=== PATIENT | female | born 1975 | race Caucasian/White ===

== ENCOUNTER 2017-03-25 04:48 | Emergency (ER) | END 2017-03-25 09:31 | disposition home or self-care (01) ==

== ENCOUNTER 2018-04-13 20:17 | Emergency (ER) | payer MEDICAID ==
[~2018-04-13] VITALS: Ht 172.7 cm; Wt 74.0 kg
[2018-04-13 20:32] VITALS: Ht 172.7 cm; Wt 74.0 kg
[2018-04-13] MEDS ORDERED: LORAZEPAM 1 MG TAB PO ONE (21:00)
[2018-04-13] MEDS ORDERED: LORA1TAB PO (22:17)
--- NOTE | 2018-04-13 22:23 | ERD ---
ER Documentation Chief Complaint Chief Complaint FLULIKE WITH MILD DIZZINESS X FEW DAYS HPI 42-year-old female is here complaining of 3 days of left-sided arm pain as well as intermittent palpitations. No chest pain at this time but states she is been having intermittent chest pain. She has had symptoms like this before and was t old it was anxiety. She has no cardiac past medical history. No fever or recent illness. No alcohol smoking or drugs. ROS All systems reviewed and are negative except as per history of present illness. Medications Home Meds Active Scripts Lorazepam* (Lorazepam*) 1 Mg Tablet, 1 MG PO Q8, #10 TAB Prov:GORDO OTTO PA-C 04/13/18 Allergies Allergies: Coded Allergies: No Known Allergy (Unverified , 11/16/13) PMhx/Soc History of Surgery: No Anesthesia Reaction: No Hx Neurological Disorder: No Hx Respiratory Disorders: No Hx Cardiac Disorders: No Hx Psychiatric Problems: No Hx Miscellaneous Medical Probl: No Hx Alcohol Use: No Hx Substance Use: No Hx Tobacco Use: No Smoking Status: Never smoker FmHx Family History: No diabetes Physical Exam Vitals Vital Signs Date Temp Pulse Resp B/P (MAP) Pulse Ox O2 O2 Flow FiO2 Time Delivery Rate 04/13/18 99.8 71 18 122/57 99 20:32 (78) Physical Exam INITIAL VITAL SIGNS: Reviewed by me GENERAL: Awake, alert and oriented x 4, well appearing, nontoxic, speaking in full sentences. No acute distress HEAD: Atraumatic NECK: Supple. No masses. Full range of motion. No meningismus. No midline tenderness. EYES: EOMI. PERRL. RESPIRATORY: Clear to auscultation bilaterally. Symmetric chest wall rise. No wheezing or rales. No accessory muscle use. CV: Regular rate and rhythm. No murmurs, rubs, or gallops. Result Diagram: 04/13/18211004/13/182110 Results 24 hrs Laboratory Tests Test 04/13/18 21:11 04/13/18 21:19 White Blood Count 8.1 10^3/ul Red Blood Count 4.47 10^6/ul Hemoglobin 10.8 g/dl Hematocrit 33.7 % Mean Corpuscular Volume 75.4 fl Mean Corpuscular Hemoglobin 24.2 pg Mean Corpuscular Hemoglobin Concent 32.0 g/dl Red Cell Distribution Width 14.7 % Platelet Count 313 10^3/UL Mean Platelet Volume 9.5 fl Immature Granulocytes % 0.200 % Neutrophils % 65.5 % Lymphocytes % 22.4 % Monocytes % 9.5 % Eosinophils % 1.7 % Basophils % 0.7 % Nucleated Red Blood Cells % 0.0 /100WBC Immature Granulocytes # 0.020 10^3/ul Neutrophils # 5.3 10^3/ul Lymphocytes # 1.8 10^3/ul Monocytes # 0.8 10^3/ul Eosinophils # 0.1 10^3/ul Basophils # 0.1 10^3/ul Nucleated Red Blood Cells # 0.0 10^3/ul Sodium Level 139 mmol/L Potassium Level 3.5 mmol/L Chloride Level 106 mmol/L Carbon Dioxide Level 24 mmol/L Anion Gap 9 Blood Urea Nitrogen 14 mg/dl Creatinine 0.67 mg/dl Est Glomerular Filtrat Rate mL/min > 60 mL/min Glucose Level 99 mg/dl Calcium Level 9.0 mg/dl Troponin I < 0.012 ng/ml POC Beta HCG, Qualitative NEGATIVE Current Medications Medications Dose Sig/Baldomero Start Time Status Last (Trade) Ordered Route PRN Stop Time Admin Dose Reason Admin Lorazepam 1 mg ONCE ONCE 04/13/18 DC 04/13/18 (Ativan) PO 21:00 04/13/18 21:17 21:01 Procedures/MDM The differential diagnosis includes but is not limited to acute coronary syndrome acute myocardial infarction, pericarditis, pulmonary embolism, aortic dissection, pneumonia, pleural effusion, pneumothorax, GERD, chest wall pain, and others. Laboratory analysis shows no evidence of acute emergent abnormality. No evidence of significant leukocytosis suggesting systemic infection or severe anemia. No evidence of acute renal or liver failure, no evidence of severe alkalosis or acidosis. Chest x-ray and EKG are negative. As is troponin. She was given Ativan with good relief. She has a history of anxiety and her symptoms are likely secondary to anxiety. Patient counseled regarding my diagnostic impression and care plan. Prior to discharge all questions answered. Pt agrees with treatment plan and understands strict return precautions. Pt is instructed to follow up with primary care provider within 24- 48 hours. Precautionary instructions provided including instructions to return to the ER if not improving or for any worsening or changing symptoms or concerns. Departure Diagnosis: Primary Impression: Anxiety Condition: Stable Patient Instructions: Anxiety Reaction Additional Instructions: Llame al doctor MAANA y jin maykel ANGELIC PARA DENTRO DE 1-2 SANDY.Dgale a la secretaria que nosotros le instruimos hacer esta angelic.Avise o llame si haddad condicin se empeora antes de la angelic. Regresa aqui si peor o no mejor. GORDO OTTO PA-C Apr 13, 2018 22:23
[2018-04-13 22:25] VITALS: BP 130/65; PULSE 85; RESP 19
== END 2018-04-13 22:26 | disposition home or self-care (01) ==
LOC: FTE 20:17
DX: F41.9 Anxiety disorder, unspecified (principal)
CPT/HCPCS: 36415; 71045; 80048; 81025; 84484; 85025; 93005; Z7502; Z7610